=== PATIENT | female | born 1975 | race Two or more races ===

== ENCOUNTER 2016-10-11 23:09 | Emergency (ER) | payer OTHER ==
[2016-10-11] MEDS ORDERED: ONDANSETRON 4 MG/2 ML VIAL IVPUSH ONE (23:22)
[2016-10-11] MEDS ORDERED: HYDROmorphone HCL CARPU-JECT 1 MG/1 ML DISP.SYRIN IVPB ONE (23:24)
[2016-10-11 23:28] VITALS: BP 164/85; PULSE 79; TEMP 97.1; BMI 20.3
[2016-10-11] MEDS ORDERED: HYDROmorphone HCL CARPU-JECT 1 MG/1 ML DISP.SYRIN ONE (23:40)
[2016-10-11] MEDS ORDERED: ONDANSETRON 4 MG/2 ML VIAL ONE (23:40)
[2016-10-11 23:45] LABS: BASOPHIL 0.9 % (0-2.0); EOSINOPHIL 1.7 % (0-4.5); MCH 27.9 pg (25.7-33.7); MEAN CELL VOLUME 87.1 fl (80-96); MEAN PLT VOLUME 9.7 fl (7.5-11.1); NEUTROPHILS 58.6 % (42.8-82.8); RDW 19.4 % (11.6-15.6); WHITE BLOOD COUNT 4.9 K/mm3 (4.0-10.0)
[2016-10-12 00:02] LABS: URINE APPEARANCE CLEAR; URINE BILIRUBIN NEGATIVE (NEGATIVE); URINE COLOR LTYELLOW; URINE GLUCOSE (UA) 2+ (NEGATIVE); URINE KETONE NEGATIVE (NEGATIVE); URINE LEUK ESTERASE NEGATIVE (NEGATIVE); URINE NITRITE NEGATIVE (NEGATIVE); URINE UROBILINOGEN NEGATIVE E.U./dl (0.2-1.0)
[2016-10-12 00:06] LABS: ALBUMIN 3.3 g/dl (3.4-5.0); BILIRUBIN,TOTAL 1.1 mg/dL (0.2-1.0); COCKROFT - GAULT 9.01; CREATININE 6.9 mg/dL (0.55-1.02); TOT PROT 6.5 g/dl (6.4-8.2)
--- NOTE | 2016-10-12 00:13 | PDOC ---
History of Present Illness - General Chief Complaint: Pain, Acute Stated Complaint: ABD PAIN Time Seen by Provider: 10/11/16 23:13 History Source: Patient, Family, Compliance Officer Used Exam Limitations: Language Barrier - History of Present Illness Travel History: No Initial Comments: 10/12/16 00:04 41yo Female patient w/ PmHx: ESRD, Lupus, HTN, Dialysis (Mon, Wed, Fri) presents to ED c/o abdominal pain that began 1 week ago, which worsened with abdominal bloating. Patient also c/o right rib pain, subjective fever, and nausea. LNMP: Currently. She denies trauma, injury, fall, fever, cough, vomiting , diarrhea, or any other complaints at this time. PCP- Dr. Berg. Timing/Duration: reports: getting worse Quality: reports: severe Abdominal Pain Onset Location: reports: RLQ Pain Radiation: reports: chest (Right Rib) Activities at Onset: reports: no specific activity Past History - Travel Traveled outside of the country in the last 30 days: No Close contact w/someone who was outside of country & ill: No - Past Medical History Allergies/Adverse Reactions: Allergies Allergy/AdvReac Type Severity Reaction Status Date / Time morphine Allergy Verified 10/11/16 23:16 Pork/Porcine Containing AdvReac Nausea Unverified 10/11/16 23:16 Products Home Medications: Ambulatory Orders Calcium Carbonate/Vitamin D3 [Calcium 500 + Vit D Caplet] 1 each PO DAILY #1 Diltiazem [Cardizem -] 90 mg PO TID 08/06/14 Prednisone [Deltasone -] 20 mg PO DAILY 06/19/15 Methocarbamol [Robaxin -] 500 mg PO Q8H PRN #21 tablet 10/12/16 Tramadol HCl 50 mg PO Q6H PRN #20 tablet MDD 4 tab 10/12/16 Anemia: Yes Asthma: No Cancer: No Cardiac Disorders: No CVA: No COPD: No CHF: No Dementia: No Diabetes: No Dialysis: Yes (M,W,F) GI Disorders: No Disorders: No HTN: Yes Hypercholesterolemia: No Liver Disease: No Seizures: No Thyroid Disease: No - Immunization History Immunization Up to Date: Yes - Psycho/Social/Smoking Cessation Hx Suicidal Ideation: No Smoking Status: No Smoking History: Never smoked Have you smoked in the past 12 months: No Number of Cigarettes Smoked Daily: 0 Information on smoking cessation initiated: No Hx Alcohol Use: No Drug/Substance Use Hx: No Substance Use Type: None Hx Substance Use Treatment: No Review of Systems - Review of Systems Able to Perform ROS?: Yes Is the patient limited Bulgarian proficient: No Constitutional: Yes: Fever (Subjective Fever). No: Chills Respiratory: No: Cough, Shortness of Breath, Stridor, Wheezing Cardiac (ROS): No: Chest Pain, Palpitations, Syncope, Chest Tightness ABD/GI: Yes: Abdominal Distended, Nausea, Abdominal cramping. No: Constipated, Diarrhea, Vomiting : No: Burning, Dysuria, Frequency, Flank Pain, Hematuria, Urgency Musculoskeletal: No: Back Pain Integumentary: No: Bruising, Rash All Other Systems: Reviewed and Negative *Physical Exam - Vital Signs Last Vital Signs Temp Pulse Resp BP Pulse Ox 97.1 F L 79 20 164/85 100 10/11/16 23:16 10/11/16 23:16 10/11/16 23:16 10/11/16 23:16 10/11/16 23:16 - Physical Exam General Appearance: Yes: Nourished, Appropriately Dressed, Apparent Distress, Moderate Distress. No: Mild Distress, Severe Distress Neck: positive: Trachea midline, Supple. negative: Stridor, Lymphadenopathy (R) , Lymphadenopathy (L) Respiratory/Chest: positive: Lungs Clear, Normal Breath Sounds. negative: Chest Tender, Respiratory Distress, Accessory Muscle Use, Labored Respiration, Rapid RR, Crackles, Rales, Rhonchi, Stridor, Wheezing Cardiovascular: positive: Regular Rhythm, Regular Rate Gastrointestinal/Abdominal: positive: Tender, Soft, Increased Bowel Sounds, Distended, Guarding, Rebound, Tenderness Musculoskeletal: positive: Normal Inspection. negative: CVA Tenderness Extremity: positive: Normal Capillary Refill, Normal Inspection, Normal Range of Motion. negative: Swelling, Calf Tenderness, Erythema, Inflammation Integumentary: positive: Normal Color, Dry, Warm Neurologic: positive: rn correctional II-XII NML intact, Fully Oriented, Alert, Normal Mood/ Affect, Normal Response, Motor Strength 5/5 ED Treatment Course - LABORATORY CBC & Chemistry Diagram: 10/11/16 23:32 10/11/16 23:32 - ADDITIONAL ORDERS Additional order review: 10/11/16 23:32 RBC 4.59 MCV 87.1 MCHC 32.0 RDW 19.4 H MPV 9.7 Neutrophils % 58.6 Lymphocytes % 30.2 D Monocytes % 8.6 Eosinophils % 1.7 D Basophils % 0.9 - RADIOLOGY Radiology Studies Ordered: Category Date Time Status ABDOMEN & PELVIS CT W/O CONTR [CT] Stat CT Scan 10/11/16 23:[address] WITHOUT CONTRAST [CT] Stat CT Scan 10/11/16 23:22 Ordered - Medications Given in the ED: ED Medications Discontinued Medications Generic Name Dose Route Start Last Admin Trade Name Freq PRN Reason Stop Dose Admin Hydromorphone HCl 1 mg 10/11/16 23:24 10/11/16 23:48 Dilaudid Injection - IVPB 10/11/16 23:25 1 mg ONCE ONE Administration Ondansetron HCl 4 mg 10/11/16 23:22 10/11/16 23:48 Zofran Injection IVPUSH 10/11/16 23:23 4 mg ONCE ONE Administration *DC/Admit/Observation/Transfer Diagnosis at time of Disposition: Costochondral pain Abdominal pain Qualifiers: Abdominal location: lower abdomen, unspecified Qualified Code(s): R10.30 - Lower abdominal pain, unspecified - Discharge Dispostion Disposition: HOME Condition at time of disposition: Improved Admit: No - Prescriptions Prescriptions: Methocarbamol [Robaxin -] 500 mg PO Q8H PRN #21 tablet PRN Reason: Rib Pain Tramadol HCl 50 mg PO Q6H PRN #20 tablet MDD 4 tab PRN Reason: Severe Pain - Referrals Referrals: Ishaan Olivas MD [Staff Physician] - - Patient Instructions Printed Discharge Instructions: DI for Costochondritis Additional Instructions: FOLLOW UP WITH DR. OLIVAS (GASTROENTEROLOGY) OR YOUR KILN FIREMAN THIS WEEK. CALL TO SCHEDULE APPOINTMENT REGARDING ABDOMINAL BLOATING. TAKE MEDICATIONS PRESCRIBED. APPLY WARM COMPRESS TO AFFECTED AREA. ROBAXIN - MUSCLE RELAXER. TRAMADOL- PAIN RELIEVER. DO NOT TAKE EXTRA TYLENOL WITH THIS MEDICATION. RETURN IF SYMPTOMS WORSEN, SUCH SEVERE VOMITING, INCREASING ABDOMINAL PAIN, OR FEVER. Print Language: TURKISH
[2016-10-12 00:18] LABS: URINE BLOOD 1+ (NEGATIVE)
[2016-10-12 00:19] LABS: URINE PROTEIN 2+ (NEGATIVE)
[2016-10-12 00:20] LABS: PLATELET COUNT 76 K/MM3 (134-434)
[2016-10-12 00:23] LABS: URINE MUCUS RARE; URINE RBC 23 /hpf (0-3)
== END 2016-10-12 02:29 | disposition home or self-care (01) ==
LOC: JER 23:09
PROC: 3E033NZ Introduction of Analgesics, Hypnotics, Sedatives into Peripheral Vein, Percutaneous Approach (ICD-10-PCS; principal; 2016-10-11)
PROC: 3E033GC Introduction of Other Therapeutic Substance into Peripheral Vein, Percutaneous Approach (ICD-10-PCS; 2016-10-11)
DX: M94.0 Chondrocostal junction syndrome [Tietze] (principal); I12.0 Hypertensive chronic kidney disease with stage 5 chronic kidney disease or end stage renal disease; N18.6 End stage renal disease; N17.8 Other acute kidney failure; Z99.2 Dependence on renal dialysis
CPT/HCPCS: 36415; 71250-TC; 74176-TC; 80053; 81003; 81015; 85025; 87086; 96374; 96375; 99281-25

== ENCOUNTER 2017-11-28 16:39 | Emergency (ER) | payer OTHER ==
[2017-11-28 16:57] VITALS: BP 160/97; PULSE 70; TEMP 98.5; BMI 20.3
--- NOTE | 2017-11-28 17:21 | PDOC ---
History of Present Illness - General Chief Complaint: Cold Symptoms Stated Complaint: FATIGUE Time Seen by Provider: 11/28/17 17:05 History Source: Patient Exam Limitations: Clinical Condition - History of Present Illness Initial Comments: 11/28/17 17:16 Patient with history of lupus presenting with complain of 3 days history of sore throat, nonproductive cough, body aches, headache and abdominal pain. Patient also report cold and hot sensation and patient reported painful to swallow. Patient also report intermittent chest tightness for a week now with cough. She'll also report diarrhea with epigastric pain for 3 days. Patient denies any other symptoms. Past History - Past Medical History Allergies/Adverse Reactions: Allergies Allergy/AdvReac Type Severity Reaction Status Date / Time morphine Allergy Verified 11/28/17 16:57 Pork/Porcine Containing AdvReac Nausea Verified 11/28/17 16:57 Products Home Medications: Ambulatory Orders Calcium Carbonate/Vitamin D3 [Calcium 500 + Vit D Caplet] 1 each PO DAILY #1 Diltiazem [Cardizem -] 90 mg PO TID 08/06/14 Azithromycin [Zithromax Tri-Billy (3 DAYS) -] 500 mg PO DAILY #3 tablet 11/28/17 Benzonatate [Tessalon Pearls -] 100 mg PO TID PRN #21 capsule 11/28/17 Ipratropium [place] 2 sprays NS BID PRN #1 spray 11/28/17 Anemia: Yes Asthma: No Cancer: No Cardiac Disorders: No CVA: No COPD: No CHF: No Dementia: No Diabetes: No Dialysis: Yes (M,W,F) GI Disorders: No Disorders: No HTN: Yes Hypercholesterolemia: No Liver Disease: No Seizures: No Thyroid Disease: No - Immunization History Immunization Up to Date: Yes - Suicide/Smoking/Psychosocial Hx Smoking Status: No Smoking History: Never smoked Have you smoked in the past 12 months: No Number of Cigarettes Smoked Daily: 0 Information on smoking cessation initiated: No Hx Alcohol Use: No Drug/Substance Use Hx: No Substance Use Type: None Hx Substance Use Treatment: No Review of Systems - Review of Systems Able to Perform ROS?: Yes Is the patient limited Cameroonian proficient: No Constitutional: Yes: Symptoms Reported, See HPI. No: Diaphoresis, Loss of Appetite, Malaise, Night Sweats, Weakness, Weight Stable, Unintentional Wgt. Loss, Unexplained wgt Loss, Other HEENTM: Yes: See HPI, Nose Congestion, Throat Pain, Difficulty Swallowing. No: Eye Pain, Blurred Vision, Tearing, Recent change in vision, Double Vision, Cataracts, Ear Pain, Ocular Prothesis, Ear Discharge, Nose Pain, Tinnitus, Nose Bleeding, Hearing Loss, Throat Swelling, Mouth Pain, Dental Problems, Mouth Swelling, Other Respiratory: Yes: Cough. No: Shortness of Breath, SOB with Exertion, Stridor, Wheezing, Productive cough, Hemoptysis Cardiac (ROS): No: Chest Pain, Edema, Irregular Heart Rate, Lightheadedness, Palpitations, Syncope, Chest Tightness, Other ABD/GI: Yes: Diarrhea. No: Abdominal Distended, Blood Streaked Bowels, Nausea, Rectal Bleeding, Vomiting Musculoskeletal: No: Back Pain, Gout, Joint Pain, Joint Swelling, Muscle Pain, Muscle Weakness, Neck Pain, Joint Stiffness, Other Psychiatric: No: Anxiety, Depression, Frequent Crying, Stressors, Sleep Pattern Change, Emotional Problems, Mood Swings, Change in Appetite, Other All Other Systems: Reviewed and Negative *Physical Exam - Vital Signs Last Vital Signs Temp Pulse Resp BP Pulse Ox 98.5 F 70 16 160/97 100 11/28/17 16:53 11/28/17 16:53 11/28/17 16:53 11/28/17 16:53 11/28/17 16:53 - Physical Exam Comments: 11/28/17 17:20 GENERAL: Well developed, well nourished. Awake and alert. No acute distress. HEENT: Normocephalic, atraumatic. PERRLA, EOMI. No conjunctival pallor. Sclera are non- icteric. Moist mucous membranes. Oropharynx is clear. NECK: Supple. Full ROM. No JVD. Carotid pulses 2+ and symmetric, without bruits. No thyromegaly. No lymphadenopathy. CARDIOVASCULAR: Regular rate and rhythm. No murmurs, rubs, or gallops. Distal pulses are 2+ and symmetric. PULMONARY: No evidence of respiratory distress. Lungs clear to auscultation bilaterally. No wheezing, rales or rhonchi. ABDOMINAL: Soft. Non-tender. Non-distended. No rebound or guarding. No organomegaly. Normoactive bowel sounds. MUSCULOSKELETAL Normal range of motion at all joints. No bony deformities or tenderness. No CVA tenderness. EXTREMITIES: No cyanosis. No clubbing. No edema. No calf tenderness. SKIN: Warm and dry. Normal capillary refill. No rashes. No jaundice. NEUROLOGICAL: Alert, awake, appropriate. Cranial nerves 2-12 intact. No deficits to light touch and temperature in face, upper extremities and lower extremities. No motor deficits in the in face, upper extremities and lower extremities. Normoreflexic in the upper and lower extremities. Normal speech. Toes are down- going bilaterally. Gait is normal without ataxia. PSYCHIATRIC: Cooperative. Good eye contact. Appropriate mood and affect. General Appearance: Yes: Nourished, Appropriately Dressed. No: Apparent Distress Medical Decision Making - Medical Decision Making 11/28/17 17:21 Patient with history of lupus presenting with complain of sore throat, cough, bodyaches, with diarrhea and abdominal pain. Symptoms likely pharyngitis with URI. Rapid strep ordered to rule out strep pharyngitis and throat culture ordered. Treat based on strep results 11/28/17 17:48 rapid strep neg. patient will be treated for pharyngitis with URI with PCP follow-up *DC/Admit/Observation/Transfer Diagnosis at time of Disposition: Pharyngitis Qualifiers: Pharyngitis/tonsillitis etiology: unspecified etiology Qualified Code(s): J02.9 - Acute pharyngitis, unspecified URI (upper respiratory infection) Qualifiers: URI type: unspecified URI Qualified Code(s): J06.9 - Acute upper respiratory infection, unspecified - Discharge Dispostion Disposition: HOME Condition at time of disposition: Stable - Prescriptions Prescriptions: Azithromycin [Zithromax Tri-Billy (3 DAYS) -] 500 mg PO DAILY #3 tablet Benzonatate [Tessalon Pearls -] 100 mg PO TID PRN #21 capsule PRN Reason: Cough Ipratropium [place] 2 sprays NS BID PRN #1 spray PRN Reason: nasal congestion - Referrals - Patient Instructions Printed Discharge Instructions: DI for Common Cold - Post Discharge Activity
[2017-11-28] MEDS ORDERED: ACETAMINOPHEN 325 MG TABLET (FP) PO ONE (17:59)
[2017-11-28] MEDS ORDERED: ACETAMINOPHEN 325 MG TABLET (FP) ONE (18:02)
== END 2017-11-28 18:02 | disposition home or self-care (01) ==
LOC: JERFT 16:39
DX: J02.9 Acute pharyngitis, unspecified (principal); J06.9 Acute upper respiratory infection, unspecified; I12.0 Hypertensive chronic kidney disease with stage 5 chronic kidney disease or end stage renal disease; N18.6 End stage renal disease; N17.8 Other acute kidney failure; Z99.2 Dependence on renal dialysis
CPT/HCPCS: 87070; 87430; 99281-25

== ENCOUNTER 2018-03-17 20:04 | Emergency (ER) | payer OTHER ==
[2018-03-17 20:18] VITALS: PULSE 74; TEMP 97.8; BMI 20.9
--- NOTE | 2018-03-17 20:36 | PDOC ---
History of Present Illness - General Chief Complaint: Pain Stated Complaint: ABD PAIN Time Seen by Provider: 03/17/18 20:06 History Source: Patient, Family (Daughter present for interview) Exam Limitations: No Limitations - History of Present Illness Initial Comments: 42 y/o female presenting to [facility] ER via ambulance from home complaining of lower abdominal pain for the past three days. History significant for Lupus and ESRD. Pain has increased in intensity over this period. Radiates through lower abdomen and into right and left lower back. Described as dull in nature and worse with sitting up. Endorses nausea without vomiting. Endorses diarrhea ( nonbloody and nonbilious) and loose stools, estimates 5 episodes per day. Also endorses dysuria and white discharge when voiding. Pt has ESRD on hemodialysis, last run Wednesday (16 Mar 2018); still makes a trace amount of urine. Pt has a history of similar pain. Was evaluated at [facility] a few weeks ago where she was kept overnight but nothing was done. She was evaluated by her quill skinner, Dr. Berg, last week but is unable to recall his recommendations. PCP: Garo Hernández Gullet Slitter: Dr. Berg Head Athletic Trainer/Strength Coach: Dr. Chavez Medical Hx: ESRD Dialysis (Wed, Wed, Wed) Lupus HTN Surgical Hx: , 13 years ago Past History - Past Medical History Allergies/Adverse Reactions: Allergies Allergy/AdvReac Type Severity Reaction Status Date / Time morphine Allergy Verified 03/18/18 01:54 Pork/Porcine Containing AdvReac Nausea Verified 03/18/18 01:54 Products Home Medications: Ambulatory Orders Calcium Carbonate/Vitamin D3 [Calcium 500 + Vit D Caplet] 1 each PO DAILY #1 Diltiazem [Cardizem -] 90 mg PO TID 08/06/14 Acetaminophen [Tylenol] 650 mg PO QID PRN #20 tablet 11/28/17 Azithromycin [Zithromax Tri-Billy (3 DAYS) -] 500 mg PO DAILY #3 tablet 11/28/17 Benzonatate [Tessalon [place] -] 100 mg PO TID PRN #21 capsule 11/28/17 Ipratropium [place] 2 sprays NS BID PRN #1 spray 11/28/17 Loperamide HCl/Simethicone [Imodium Multi-Symptom Rel Cplt] 1 each PO TID PRN # 20 tablet 11/28/17 traMADol HCL [Ultram -] 50 mg PO BID PRN #7 tablet MDD 2 tabs 03/18/18 Anemia: Yes Asthma: No Cancer: No Cardiac Disorders: No CVA: No COPD: No CHF: No Dementia: No Diabetes: No Dialysis: Yes (M,W,F) GI Disorders: No Disorders: No HTN: Yes Hypercholesterolemia: No Liver Disease: No Seizures: No Thyroid Disease: No - Immunization History Immunization Up to Date: Yes - Suicide/Smoking/Psychosocial Hx Smoking Status: No Smoking History: Never smoked Have you smoked in the past 12 months: No Number of Cigarettes Smoked Daily: 0 Information on smoking cessation initiated: No Hx Alcohol Use: No Drug/Substance Use Hx: No Substance Use Type: None Hx Substance Use Treatment: No Review of Systems - Review of Systems Able to Perform ROS?: Yes Comments:: In addition to that documented in the HPI above, the additional ROS was obtained : Constitutional: Denies fevers or chills Eyes: Denies vision changes ENMT: Denies sore throat CV: Denies chest pain Resp: Denies SOB GI: Per HPI *Physical Exam - Vital Signs Last Vital Signs Temp Pulse Resp BP Pulse Ox 97.8 F 74 19 177/76 H 100 03/17/18 20:09 03/17/18 20:09 03/17/18 20:09 03/17/18 20:09 03/17/18 20:09 - Physical Exam Comments: Constitutional: Well-developed female in no acute distress or obvious discomfort. Appearing older than stated age. Found semi-fowlers in hospital bed. Alert and oriented x4. Answered all questions appropriately and completely. Speech was non-labored, non-pressured. HEENT: Normocephalic. No obvious external signs of trauma. Hearing grossly normal. No nasal discharge. Neck is supple, trachea is midline. Cardiovascular: Regular rate and regular rhythm. S3 heart tone, no murmur, rubs , or clicks. Peripheral pulses: Radial pulses full. Respiratory: Breathing unlabored. Equal chest rise and fall. Clear to auscultation bilaterally. No stridor, no wheezing, no rhonchi. Gastrointestinal: abdomen is soft and non-distended. Subjectively tender in RLQ , LLQ, and epigastric region with grimace but no withdrawal or guarding. No pulsatile masses. No overlying skin lesions or obvious signs of trauma. Neuro: Alert and oriented. Moving all four extremities spontaneously. Skin: Warm, dry, and intact. No bruising, rashes, or other lesions. : R or L CVA tenderness. Psych: Affect: emotive. Mood: normal. ED Treatment Course - LABORATORY CBC & Chemistry Diagram: 03/17/18 20:52 03/17/18 20:52 - RADIOLOGY Radiograph Interpretation: Abdomen and Pelvis CT with Contrast: Nico Rincon MD wrote on Mar 17, 2018 at 11:43 PM: Referring Physician: BISHOP COREY Patient Name: FLORENCE MAN THIS IS A PRELIMINARY REPORT FROM IMAGING PATIENT [facility]ANCIAL SPECIAL[facility] DATE OF SERVICE: 2018-03-17 23:07:08 IMAGES: [id number] EXAM: ABDOMEN \T\ PELVIS CT WITH CONTR HISTORY: Left lower quadrant pain. History of lupus. COMPARISON: None. FINDINGS: Lung bases are clear. Heart is mildly enlarged. There is mild dilation of IVC and hepatic veins which could indicate right-sided heart failure. Small amount of perihepatic and pericholecystic fluid is noted. Liver is is mildly enlarged up to 18.3 cm. There is pericholecystic edema, but this is felt to be secondary to the more generalized process and not cholecystitis. The kidneys are severely atrophic. No hydronephrosis. Normal pancreas, spleen, adrenal glands . The stomach and abdominal small and large bowel are normal. There is no aortic aneurysm. There is mild nonspecific retroperitoneal lymphadenopathy. The pelvic small and large bowel are normal. The appendix is normal. The uterus and adnexal structures are normal. Urinary bladder is unremarkable. Small amount of pelvic ascites is noted. No discrete pelvic lymphadenopathy is identified. IMPRESSION: Suspected right heart failure with small amount of ascites. Cardiomegaly. Hepatomegaly. Renal atrophy. One or more of the following dose reduction techniques were used: automated exposure control, adjustment of the mA and/or kV according to patient size, use of iterative reconstructive technique. THIS DOCUMENT HAS BEEN ELECTRONICALLY SIGNED Adama Rincon MD 03/17/2018 23:41 EST Medical Decision Making - Medical Decision Making *Reviewed vital signs, nursing notes, and prior visit documentation (if available). 42 y/o female complaining of vague abdominal pain in setting of chronic abdominal pain, Lupus, ESRD. Afebrile. Vitals unremarkable. Physical exam as described above. Suspect IBS versus gastritis versus colitis. Low suspicion for esophageal spasm, biliary colic, cholecystitis, ascending cholangitis, choledocholithiasis, pancreatitis, UTI. Very low suspicion for ACS, splenic infarct, acute hepatitis, lower lobe pneumonia, or appendicitis. Will obtain CBC , CMP, Lipase, Mag, Phos, UA, urine culture, and EKG. Ordered zofran and tylenol for symptom relief. CT of Abdomen and Pelvis with IV Contrast revealed cardiomegaly, hepatomegaly, renal atrophy, and trace perihepatic and pericholecystic fluids. All of these have been noted on previous scans and are unlike related to acute symptoms. Study unrevealing for acute process. Laboratory studies not suggestive for acute process. 00:54 Re-examined pt, who stated her pain was unchanged. Abdomen remains unchanged and subjectively tender in RLQ, LLQ, and epigastric region. No peritoneal signs. Discussed laboratory and imaging results with pt and daughter. Further discussed importance of dialysis following the contrast load. Recommended observational admission to hospital for dialysis as pts outpatient appointment is scheduled in only a few hours. Verbally apprised pt of importance of dialysis following the contrast load. Pt declined and requested to be discharged home. 01:06 Telephone page sent for covering physician for Dr. Griggs to close loop regarding the importance of the pts dialysis. 02:[address] Griggs returned page. Pt already discharged from department. Appraised of ED course. *DC/Admit/Observation/Transfer Diagnosis at time of Disposition: Abdominal pain Qualifiers: Abdominal location: generalized Qualified Code(s): R10.84 - Generalized abdominal pain - Discharge Dispostion Disposition: HOME Condition at time of disposition: Stable Decision to Admit order: No - Prescriptions Prescriptions: traMADol HCL [Ultram -] 50 mg PO BID PRN #7 tablet MDD 2 tabs PRN Reason: Pain - Referrals Referrals: Garo Dupree [Primary Care Provider] - - Patient Instructions Printed Discharge Instructions: DI for Abdominal Pain-Adult Additional Instructions: Your lab and imaging results did not show a reason for your pain. I have sent an electronic prescription to your pharmacy for Ultram, a pain medication. Take this as directed on the package insert. Do not take more than the recommended dose. YOU NEED TO GO TO DIALYSIS TODAY March, AT YOUR SCHEDULED APPOINTMENT. Follow up with your GI Doctor, Dr. Berg, within the next 3-4 days. You will need to call to make an appointment. Take your home medications as instructed. No change was made in your medications today. Go to the nearest emergency department if your condition worsens or you feel like you need additional emergency evaluation. Print Language: MALAY - Post Discharge Activity
[2018-03-17] MEDS ORDERED: ONDANSETRON 4 MG/2 ML VIAL IVPUSH ONE (20:38)
[2018-03-17] MEDS ORDERED: ACETAMINOPHEN 500 MG TABLET (FP) PO ONE (20:43)
[2018-03-17] MEDS ORDERED: ACETAMINOPHEN 325 MG TABLET (FP) ONE (21:09)
[2018-03-17] MEDS ORDERED: ONDANSETRON 4 MG/2 ML VIAL ONE (21:09)
--- NOTE | 2018-03-17 21:28 | PDOC ---
Attending Attestation - Resident Resident Name: Tony Montoya - ED Attending Attestation I have performed the following: I have examined & evaluated the patient, The case was reviewed & discussed with the resident, I agree w/resident's findings & plan - HPI HPI: 03/17/18 21:21 42-year-old female with multiple medical problems including lupus, end-stage renal disease on dialysis Wednesday/Wednesday/Wednesday presents now with 3-4 days of intermittent abdominal pain and nonbloody diarrhea, persistent today with worsening severity so she presents for evaluation. Chills but no measured fever , nausea but no vomiting, 2-3 episodes per day of diarrhea. No recent travel, cannot recall whether she was on antibiotics, only surgical history is section. - Physicial Exam PE: 03/17/18 21:25 Elevated blood pressure, afebrile Alert, slight distress secondary to abdominal pain No obvious jaundice or pallor Abdomen is soft and nondistended, tender with guarding in the epigastric and right middle abdomen, no rebound. Palpable thrill on left arm fistula - Medical Decision Making 03/17/18 21:28 42-year-old female with end-stage renal disease on dialysis, lupus presents with 3 days of diarrhea with abdominal pain and localized peritoneal findings. Presentation could be most consistent with enteritis versus colitis versus diverticulitis, given history rule out ischemic colitis. Labs Pain control, nausea control CT of the abdomen and pelvis Will likely need admission given her exam findings, we'll need her scheduled dialysis in the morning following contrast 03/18/18 01:08 Labs within normal limits, CAT scan without acute pathology other than small ascites. Presentation not consistent with SBP, no fevers or leukocytosis. Exam improved, although pain continues. Would proceed with observation given persistent symptoms and need for dialysis, the patient is refusing and wants to go home stating she has 5:30 AM dialysis appointment anyway. Will alert the patient's data integrity specialist, Dr. Evans, to ensure dialysis follow-up in the morning. Heart Score/ECG Review #1 ECG reviewed & interpreted by me at: 22:15 General ECG Interpretation: Sinus Rhythm, Normal Rate (60), Normal Intervals ( qtc 492, qrs 492), No acute ischemic changes
[2018-03-17 21:30] LABS: BASO % 0.7 % (0-2.0); EOS % 2.3 % (0-4.5); HEMATOCRIT 39.2 % (32.4-45.2); HEMOGLOBIN 12.9 GM/dL (10.7-15.3); LYMPH % 21.3 % (8-40); MCH 29.7 pg (25.7-33.7); MEAN CELL VOLUME 89.9 fl (80-96); MEAN PLT VOLUME 10.8 fl (7.5-11.1); NEUT % 66.7 % (42.8-82.8); PLATELET COUNT 112 K/MM3 (134-434); RBC 4.36 M/mm3 (3.60-5.2); RDW 14.7 % (11.6-15.6); WHITE BLOOD COUNT 4.9 K/mm3 (4.0-10.0)
[2018-03-17 21:55] LABS: ALBUMIN 3.6 g/dl (3.4-5.0); ALK PHOS 393 U/L (45-117); ANION GAP 13 MMOL/L (8-16); BLOOD UREA NITROGEN 53 mg/dL (7-18); CALCIUM 8.4 mg/dL (8.5-10.1); CHLORIDE 97 mmol/L (98-107); CO2 27 mmol/L (21-32); CREATININE 6.1 mg/dL (0.55-1.3); GLUCOSE,RANDOM 87 mg/dL (74-106); LIPASE 218 U/L (73-393); MAGNESIUM 2.7 mg/dL (1.8-2.4); PHOSPHOROUS 6.2 mg/dL (2.5-4.9); POTASSIUM 4.3 mmol/L (3.5-5.1); SGOT/AST 33 U/L (15-37); SGPT/ALT 31 U/L (13-61); SODIUM 136 mmol/L (136-145); TOT PROT 7.7 g/dl (6.4-8.2)
[2018-03-17 22:56] LABS: HCG,QUALITATIVE URINE Negative; URINE APPEARANCE CLEAR; URINE BILIRUBIN NEGATIVE (<2.0 mg/dL); URINE COLOR YELLOW; URINE GLUCOSE (UA) 2+ (NEGATIVE); URINE KETONE NEGATIVE (NEGATIVE); URINE LEUK ESTERASE NEGATIVE (NEGATIVE); URINE NITRITE NEGATIVE (NEGATIVE); URINE PROTEIN 3+ (NEGATIVE); URINE UROBILINOGEN 4.0 E.U/dl mg/dL (0.2-1.0)
[2018-03-17 23:03] LABS: EPI CELLS FEW /HPF (FEW); URINE MUCUS RARE
[2018-03-18 01:59] VITALS: BP 142/77
--- NOTE | 2018-03-18 07:39 | EKG ---
Test Reason : Blood Pressure : / mmHG Vent. Rate : 060 BPM Atrial Rate : 060 BPM P-R Int : 158 ms QRS Dur : 084 ms QT Int : 492 ms P-R-T Axes : 089 075 083 degrees QTc Int : 492 ms NORMAL SINUS RHYTHM MINIMAL VOLTAGE CRITERIA FOR LVH, MAY BE NORMAL VARIANT NONSPECIFIC T WAVE ABNORMALITY ABNORMAL ECG Confirmed by MYA YBARRA MD ([id number]) on 03/18/2018 7:39:23 AM Referred By: Confirmed By:MYA YBARRA MD
== END 2018-03-18 01:55 | disposition home or self-care (01) ==
LOC: JER 20:04
PROC: 3E033GC Introduction of Other Therapeutic Substance into Peripheral Vein, Percutaneous Approach (ICD-10-PCS; principal; 2018-03-17)
DX: R10.84 Generalized abdominal pain (principal); I12.0 Hypertensive chronic kidney disease with stage 5 chronic kidney disease or end stage renal disease; N18.6 End stage renal disease; N17.8 Other acute kidney failure; Z99.2 Dependence on renal dialysis; D64.9 Anemia, unspecified
CPT/HCPCS: 36415; 74177-TC; 80053; 81003; 81015; 83690; 83735; 84100; 84703; 85025; 87086; 93005; 93010; 99282-25

== ENCOUNTER 2020-08-27 12:23 | Inpatient (IN) | payer OTHER ==
[2020-08-27 12:53] VITALS: BMI 21.9
[2020-08-27] MEDS ORDERED: ACETAMINOPHEN 1000 MG/100 ML VIAL (NON FORMULARY) IVPB ONE (13:39)
[2020-08-27] MEDS ORDERED: ACETAMINOPHEN 500 MG TABLET (FP) PO ONE (13:45)
[2020-08-27] MEDS ORDERED: ACETAMINOPHEN INJECTION 100 ML IVPB ONE (14:03)
[2020-08-27 14:38] LABS: BASO % 0.7 % (0-2.0); EOS % 1.9 % (0-4.5); HEMOGLOBIN 12.8 GM/dL (10.7-15.3); LYMPH % 19.8 % (8-40); MCH 29.1 pg (25.7-33.7); MCHC 33.7 g/dl (32.0-36.0); MEAN CELL VOLUME 86.4 fl (80-96); MEAN PLT VOLUME 10.9 fl (7.5-11.1); MONO % 8.9 % (3.8-10.2); NEUT % 68.7 % (42.8-82.8); PLATELET COUNT 124 K/MM3 (134-434); RBC 4.39 M/mm3 (3.60-5.2); RDW 14.9 % (11.6-15.6); WHITE BLOOD COUNT 5.3 K/mm3 (4.0-10.0)
[2020-08-27 14:41] LABS: INR 0.94 (0.83-1.09); PROTHROMBIN TIME (PATIENT) 11.6 SEC (9.7-13.0)
[2020-08-27 14:44] LABS: ACTIVATED PTT 35.7 SECONDS (25.2-36.5)
[2020-08-27 15:06] LABS: CALCIUM 9.3 mg/dL (8.5-10.1)
[2020-08-27 15:07] LABS: ALBUMIN 3.4 g/dl (3.4-5.0); BLOOD UREA NITROGEN 26.7 mg/dL (7-18); MAGNESIUM 2.5 mg/dL (1.8-2.4)
[2020-08-27 15:10] LABS: CREATININE 4.6 mg/dL (0.55-1.3)
[2020-08-27 15:12] LABS: BILIRUBIN,TOTAL 0.6 mg/dL (0.2-1); TOT PROT 7.5 g/dl (6.4-8.2)
[2020-08-27] MEDS ORDERED: ASPIRIN COATED 81 MG TABLET.EC PO SCH (19:45)
[2020-08-27] MEDS ORDERED: HEPARIN INFUSION - 25,000 UNITS/500 ML INFUS.BAG IVPB SCH (19:45)
[2020-08-27] MEDS ORDERED: ASPIRIN 81 MG CHEWABLE TABLETS ONE (20:02)
[2020-08-27] MEDS ORDERED: HEPARIN INFUSION - 25,000 UNITS/500 ML INFUS.BAG IVPB ONE (21:12)
[2020-08-27] MEDS ORDERED: ATORVASTATIN CA 80 MG TABLET (FP) PO SCH (22:00)
[2020-08-27] MEDS ORDERED: METOPROLOL TARTRATE 25 MG TABLET (FP) PO SCH (22:00)
[2020-08-27] MEDS ORDERED: HEPARIN NA (PORCINE) 5,000 UNITS/ML 1ML VIAL SQ SCH (22:00)
[2020-08-27] MEDS ORDERED: dilTIAZem HCL 30 MG TABLET ONE (22:49)
[2020-08-27] MEDS ORDERED: METOPROLOL TARTRATE 25 MG TABLET (FP) ONE (22:49)
[2020-08-27] MEDS ORDERED: ATORVASTATIN CA 80 MG TABLET (FP) ONE (22:49)
[2020-08-27] MEDS: dilTIAZem HCL 30 MG TABLET PO SCH (22:56)
[2020-08-28 05:57] LABS: HEMATOCRIT 38.6 % (32.4-45.2); HEMOGLOBIN 12.9 GM/dL (10.7-15.3); MCH 29.2 pg (25.7-33.7); MCHC 33.4 g/dl (32.0-36.0); MEAN CELL VOLUME 87.4 fl (80-96); PLATELET COUNT 114 K/MM3 (134-434); RBC 4.42 M/mm3 (3.60-5.2); RDW 14.7 % (11.6-15.6); WHITE BLOOD COUNT 4.4 K/mm3 (4.0-10.0)
[2020-08-28] MEDS ORDERED: dilTIAZem HCL 30 MG TABLET ONE (06:14)
[2020-08-28] MEDS: dilTIAZem HCL 30 MG TABLET PO SCH (06:16)
[2020-08-28 06:59] LABS: ERYTHROCYTE SEDIMENTATION RATE 16 mm/hr (0-20)
[2020-08-28 07:44] LABS: ALBUMIN 3.2 g/dl (3.4-5.0); ALK PHOS 140 U/L (45-117); ANION GAP 10 MMOL/L (8-16); BILIRUBIN,TOTAL 0.6 mg/dL (0.2-1); BLOOD UREA NITROGEN 34.7 mg/dL (7-18); CALCIUM 9.5 mg/dL (8.5-10.1); CHLORIDE 99 mmol/L (98-107); CO2 25 mmol/L (21-32); GLUCOSE,RANDOM 107 mg/dL (74-106); MAGNESIUM 2.8 mg/dL (1.8-2.4); SGOT/AST 30 U/L (15-37); SGPT/ALT 17 U/L (13-61); SODIUM 135 mmol/L (136-145); TOT PROT 7.1 g/dl (6.4-8.2)
[2020-08-28 08:42] VITALS: BP 114/76; PULSE 59; TEMP 97.9
[2020-08-28] MEDS ORDERED: CALCIUM 500MG/VIT-D 200 UNITS COMBO TABLET (FP) PO SCH (10:00)
== END 2020-08-28 08:21 | disposition left against medical advice (07) | DRG 280 ==
LOC: JER 12:23 → JERBED 18:20 → OBSVTOIN 18:34
PROVIDERS: ADMIT Internal Medicine
DX: I21.4 Non-ST elevation (NSTEMI) myocardial infarction (principal); N18.6 End stage renal disease; I12.0 Hypertensive chronic kidney disease with stage 5 chronic kidney disease or end stage renal disease; M32.9 Systemic lupus erythematosus, unspecified; Z99.2 Dependence on renal dialysis; E78.5 Hyperlipidemia, unspecified; E78.1 Pure hyperglyceridemia
CPT/HCPCS: 36415; 71046-TC-FY; 80053; 82550; 83735; 84443; 84484; 85025; 85027; 85610; 85651; 85730; 86140; 93005; 93010; 99285-25; C9803; G0378; J1644; U0003; U0005

== ENCOUNTER 2021-11-30 22:11 | Emergency (ER) | payer MEDICARE, OTHER ==
[2021-11-30 22:30] VITALS: BP 136/60; PULSE 67; RESP 17; TEMP 98.7; BMI 21.7
[2021-12-01] MEDS ORDERED: MAG HYDROX/AL HYDROX/SIMETH 30 ML UNIT-DOSE CUP PO ONE (00:48)
[2021-12-01] MEDS ORDERED: FAMOTIDINE 20 MG/50 ML IVPB 20 MG/50 ML MG IVPB ONE ×2 (00:48→01:09)
[2021-12-01] MEDS ORDERED: ACETAMINOPHEN 1000 MG/100 ML BAG IVPB ONE (00:48)
[2021-12-01] MEDS ORDERED: MAG HYDROX/AL HYDROX/SIMETH 30 ML UNIT-DOSE CUP ONE (01:09)
[2021-12-01] MEDS ORDERED: ACETAMINOPHEN INJECTION 100 ML IVPB ONE (01:10)
[2021-12-01 02:13] LABS: BASO % 0.6 % (0-2.0); EOS % 2.1 % (0-4.5); HEMATOCRIT 38.6 % (32.4-45.2); HEMOGLOBIN 12.6 GM/dL (10.7-15.3); MCHC 32.6 g/dl (32.0-36.0); MEAN CELL VOLUME 85.7 fl (80-96); MONO % 9.6 % (3.8-10.2); NEUT % 60.7 % (42.8-82.8); PLATELET COUNT 141 10^3/uL (134-434); RBC 4.51 M/mm3 (3.60-5.2); RDW 14.5 % (11.6-15.6); WHITE BLOOD COUNT 5.6 K/mm3 (4.0-10.0)
[2021-12-01 02:42] LABS: SODIUM 137 mmol/L (136-145)
[2021-12-01 02:45] LABS: ALBUMIN 3.7 g/dl (3.4-5.0); BLOOD UREA NITROGEN 67.6 mg/dL (7-18); CALCIUM 9.5 mg/dL (8.5-10.1); CO2 25 mmol/L (21-32); GLUCOSE,RANDOM 80 mg/dL (74-106); LIPASE 233 U/L (73-393)
[2021-12-01 02:48] LABS: SGOT/AST 18 U/L (15-37)
[2021-12-01 02:50] LABS: BILIRUBIN,TOTAL 0.6 mg/dL (0.2-1); TOT PROT 7.9 g/dl (6.4-8.2)
[2021-12-01 02:51] LABS: ALK PHOS 153 U/L (45-117)
[2021-12-01 03:11] LABS: ANION GAP 13 MMOL/L (8-16); CHLORIDE 100 mmol/L (98-107); CREATININE 7.8 mg/dL (0.55-1.3); SGPT/ALT 13 U/L (13-61)
== END 2021-12-01 04:42 | disposition home or self-care (01) ==
LOC: JER 22:11
PROC: 3E0333Z Introduction of Anti-inflammatory into Peripheral Vein, Percutaneous Approach (ICD-10-PCS; principal; 2021-11-30)
PROC: 3E033GC Introduction of Other Therapeutic Substance into Peripheral Vein, Percutaneous Approach (ICD-10-PCS; 2021-11-30)
DX: R10.13 Epigastric pain (principal); R19.7 Diarrhea, unspecified
CPT/HCPCS: 36415; 71046-TC-FY; 80053; 83690; 84484; 84702; 84703; 85025; 87086; 93005; 93010; 99285-25

== ENCOUNTER 2022-05-25 14:41 | Observation (INO) | payer OTHER ==
[2022-05-25] MEDS ORDERED: MAG HYDROX/AL HYDROX/SIMETH 30 ML UNIT-DOSE CUP PO ONE (15:21)
[2022-05-25] MEDS ORDERED: ACETAMINOPHEN 500 MG TABLET (FP) PO ONE (15:21)
[2022-05-25] MEDS ORDERED: FAMOTIDINE 20 MG/50 ML IVPB 20 MG/50 ML MG IVPB ONE ×2 (15:21→16:05)
[2022-05-25 15:48] LABS: BASO % 0.8 % (0-2.0); EOS % 1.9 % (0-4.5); HEMATOCRIT 36.7 % (32.4-45.2); LYMPH % 30.4 % (8-40); MCH 28.4 pg (25.7-33.7); MCHC 32.8 g/dl (32.0-36.0); MEAN CELL VOLUME 86.7 fl (80-96); MEAN PLT VOLUME 9.6 fl (7.5-11.1); MONO % 11.3 % (3.8-10.2); NEUT % 55.6 % (42.8-82.8); PLATELET COUNT 139 10^3/uL (134-434); RBC 4.24 M/mm3 (3.60-5.2); RDW 14.5 % (11.6-15.6); WHITE BLOOD COUNT 5.1 K/mm3 (4.0-10.0)
[2022-05-25 15:57] LABS: INR 0.97 (0.83-1.09); PROTHROMBIN TIME (PATIENT) 11.2 SEC (9.7-13.0)
[2022-05-25 16:00] LABS: ACTIVATED PTT 32.2 SECONDS (25.2-36.5)
[2022-05-25] MEDS ORDERED: ACETAMINOPHEN 500 MG TABLET (FP) ONE (16:03)
[2022-05-25 16:07] LABS: CHLORIDE 98 mmol/L (98-107); SODIUM 133 mmol/L (136-145)
[2022-05-25 16:09] LABS: CALCIUM 9.5 mg/dL (8.5-10.1)
[2022-05-25 16:10] LABS: ALBUMIN 3.1 g/dl (3.4-5.0); ANION GAP 9 MMOL/L (8-16); BLOOD UREA NITROGEN 72.2 mg/dL (7-18); CO2 27 mmol/L (21-32); GLUCOSE,RANDOM 77 mg/dL (74-106); LIPASE 131 U/L (73-393); MAGNESIUM 2.8 mg/dL (1.8-2.4)
[2022-05-25 16:13] LABS: SGOT/AST 11 U/L (15-37)
[2022-05-25 16:14] LABS: BILIRUBIN,TOTAL 0.4 mg/dL (0.2-1); SGPT/ALT 11 U/L (13-61); TOT PROT 6.7 g/dl (6.4-8.2)
[2022-05-25 16:15] LABS: ALK PHOS 82 U/L (45-117)
[2022-05-25] MEDS ORDERED: SODIUM ZIRCONIUM CYCLOSILICATE (LOKELMA) 5 GM PACKET PO ONE (16:39)
[2022-05-25] MEDS ORDERED: SODIUM ZIRCONIUM CYCLOSILICATE (LOKELMA) 5 GM PACKET ONE (16:55)
[2022-05-25 17:44] LABS: PHOSPHOROUS 8.4 mg/dL (2.5-4.9)
[2022-05-25] MEDS ORDERED: PANTOPRAZOLE SODIUM 40 MG VIAL ONE (18:22)
[2022-05-25] MEDS: PANTOPRAZOLE 40 MG TABLET PO SCH (18:48)
[2022-05-26 01:09] VITALS: BMI 21.3
[2022-05-26] MEDS: dilTIAZem HCL 30 MG TABLET PO SCH ×4 (01:23→22:28)
[2022-05-26] MEDS: HEPARIN NA (PORCINE) 5,000 UNITS/ML 1ML VIAL SQ SCH ×3 (01:23→22:31)
[2022-05-26] MEDS: PANTOPRAZOLE 40 MG TABLET PO SCH (09:12)
[2022-05-26] MEDS ORDERED: EPOETIN ALFA-EPBX 4,000 UNIT/ML VIAL SQ ONE (12:10)
[2022-05-26] MEDS ORDERED: SODIUM CHLORIDE 250 ML IV PRN (12:10)
[2022-05-27] MEDS: dilTIAZem HCL 30 MG TABLET PO SCH ×3 (06:07→21:37)
[2022-05-27 08:44] LABS: HEMATOCRIT 39.8 % (32.4-45.2); MCH 28.4 pg (25.7-33.7); MCHC 32.7 g/dl (32.0-36.0); MEAN CELL VOLUME 86.8 fl (80-96); MEAN PLT VOLUME 9.7 fl (7.5-11.1); PLATELET COUNT 154 10^3/uL (134-434); RBC 4.59 M/mm3 (3.60-5.2); RDW 14.4 % (11.6-15.6); WHITE BLOOD COUNT 4.7 K/mm3 (4.0-10.0)
[2022-05-27 09:23] LABS: CREATININE 6.8 mg/dL (0.55-1.3)
[2022-05-27 10:15] LABS: BLOOD UREA NITROGEN 35.8 mg/dL (7-18)
[2022-05-27] MEDS: PANTOPRAZOLE 40 MG TABLET PO SCH (10:16)
[2022-05-27] MEDS: HEPARIN NA (PORCINE) 5,000 UNITS/ML 1ML VIAL SQ SCH ×2 (10:16→21:38)
[2022-05-28] MEDS: dilTIAZem HCL 30 MG TABLET PO SCH ×2 (05:43→14:05)
[2022-05-28] MEDS: HEPARIN NA (PORCINE) 5,000 UNITS/ML 1ML VIAL SQ SCH (09:26)
[2022-05-28] MEDS: PANTOPRAZOLE 40 MG TABLET PO SCH (09:26)
[2022-05-28] MEDS ORDERED: EPOETIN ALFA-EPBX 4,000 UNIT/ML VIAL SQ ONE (09:50)
[2022-05-28] MEDS ORDERED: SODIUM CHLORIDE 250 ML IV PRN (09:50)
[2022-05-28] MEDS ORDERED: CALCIUM 500MG/VIT-D 200 UNITS COMBO TABLET (FP) PO SCH (10:00)
[2022-05-28 10:49] VITALS: RESP 18
[2022-05-28 17:21] LABS: GLIADIN ANTIBODY IGA 4 units (0-19); GLIADIN ANTIBODY IGG 4 units (0-19); TRANSGLUTAMINASE IGG < 2 U/mL (0-5)
[2022-05-28 17:34] VITALS: BP 120/65; PULSE 67; TEMP 98
== END 2022-05-28 18:35 | disposition home or self-care (01) ==
LOC: JER 14:41 → JERBED 17:09 → J4W 05-26 01:01
PROVIDERS: ADMIT Internal Medicine; ATTEND Internal Medicine
PROC: 3E033GC Introduction of Other Therapeutic Substance into Peripheral Vein, Percutaneous Approach (ICD-10-PCS; principal; 2022-05-25)
DX: I12.0 Hypertensive chronic kidney disease with stage 5 chronic kidney disease or end stage renal disease (principal); R10.13 Epigastric pain; E78.00 Pure hypercholesterolemia, unspecified; G89.29 Other chronic pain; M32.9 Systemic lupus erythematosus, unspecified; Z99.2 Dependence on renal dialysis; Z88.6 Allergy status to analgesic agent; Z91.018 Allergy to other foods
CPT/HCPCS: 0241U-QW; 36415; 71046-TC-FY; 71275-TC; 74174-TC; 80048; 80053; 82150; 82784; 83516; 83615; 83690; 83735; 84100; 84155; 84165; 84484; 85025; 85027; 85045; 85610; 85730; 86038; 86140; 86225; 86334; 86803; 87340; 93005; 93010; 93306-TC; 96365; 99285-25; G0378

== ENCOUNTER 2022-09-15 10:36 | Inpatient (IN) | payer OTHER ==
[2022-09-15 10:57] VITALS: BMI 21.4
[2022-09-15] MEDS ORDERED: SODIUM CHLORIDE 0.9% 500 ML INFUS.BAG IV ONE (11:17)
[2022-09-15 11:49] LABS: BASO % 0.9 % (0-2.0); EOS % 2.3 % (0-4.5); HEMATOCRIT 17.1 % (32.4-45.2); LYMPH % 25.8 % (8-40); MCH 28.1 pg (25.7-33.7); MCHC 33.5 g/dl (32.0-36.0); MEAN CELL VOLUME 83.7 fl (80-96); MEAN PLT VOLUME 9.5 fl (7.5-11.1); MONO % 8.9 % (3.8-10.2); NEUT % 62.1 % (42.8-82.8); PLATELET COUNT 175 10^3/uL (134-434); RBC 2.04 M/mm3 (3.60-5.2); RDW 15.4 % (11.6-15.6); WHITE BLOOD COUNT 2.5 K/mm3 (4.0-10.0)
[2022-09-15 11:55] LABS: INR 0.96 (0.83-1.09); PROTHROMBIN TIME (PATIENT) 11.1 SEC (9.7-13.0)
[2022-09-15 11:56] LABS: HEMOGLOBIN 5.7 GM/dL (10.7-15.3)
[2022-09-15 11:57] LABS: ACTIVATED PTT 29.4 SECONDS (25.2-36.5)
[2022-09-15 12:05] LABS: POTASSIUM 3.8 mmol/L (3.5-5.1)
[2022-09-15 12:09] LABS: CALCIUM 9.1 mg/dL (8.5-10.1)
[2022-09-15 12:10] LABS: ALBUMIN 2.8 g/dl (3.4-5.0); BLOOD UREA NITROGEN 18.7 mg/dL (7-18); MAGNESIUM 2.1 mg/dL (1.8-2.4)
[2022-09-15 12:13] LABS: CREATININE 3.2 mg/dL (0.55-1.3)
[2022-09-15 12:14] LABS: BILIRUBIN,TOTAL 0.4 mg/dL (0.2-1)
[2022-09-15 12:15] LABS: URINE APPEARANCE TURBID; URINE COLOR RED; URINE GLUCOSE (UA) TRACE (NEGATIVE)
[2022-09-15 12:16] LABS: URINE BILIRUBIN NEGATIVE (NEGATIVE); URINE PROTEIN 4+ (NEGATIVE); URINE UROBILINOGEN 0.2 mg/dL (0.2-1.0)
[2022-09-15] MEDS ORDERED: medroxyPROGESTERone ACET 5 MG TABLET PO ONE (16:30)
[2022-09-15 17:28] LABS: RETICULOCYTES 2.21 % (0.5-1.5)
[2022-09-15 21:31] LABS: BASO % 1.2 % (0-2.0); EOS % 2.1 % (0-4.5); HEMOGLOBIN 7.9 GM/dL (10.7-15.3); LYMPH % 25.1 % (8-40); MCH 28.1 pg (25.7-33.7); MCHC 33.7 g/dl (32.0-36.0); MEAN CELL VOLUME 83.3 fl (80-96); MEAN PLT VOLUME 8.7 fl (7.5-11.1); NEUT % 60.6 % (42.8-82.8); PLATELET COUNT 160 10^3/uL (134-434); RDW 14.6 % (11.6-15.6); WHITE BLOOD COUNT 3.4 K/mm3 (4.0-10.0)
[2022-09-15 21:32] LABS: HEMATOCRIT 23.3 % (32.4-45.2)
[2022-09-16 06:55] LABS: EOS % 2.5 % (0-4.5); HEMATOCRIT 21.4 % (32.4-45.2); HEMOGLOBIN 7.7 GM/dL (10.7-15.3); LYMPH % 32.1 % (8-40); MCH 29.3 pg (25.7-33.7); MCHC 35.8 g/dl (32.0-36.0); MEAN CELL VOLUME 81.8 fl (80-96); MEAN PLT VOLUME 9.4 fl (7.5-11.1); MONO % 10.5 % (3.8-10.2); NEUT % 53.9 % (42.8-82.8); PLATELET COUNT 160 10^3/uL (134-434); RBC 2.62 M/mm3 (3.60-5.2); RDW 14.9 % (11.6-15.6); WHITE BLOOD COUNT 3.1 K/mm3 (4.0-10.0)
[2022-09-16 07:08] LABS: POTASSIUM 4.8 mmol/L (3.5-5.1)
[2022-09-16 07:14] LABS: CALCIUM 8.3 mg/dL (8.5-10.1)
[2022-09-16 07:15] LABS: ALBUMIN 2.4 g/dl (3.4-5.0); BLOOD UREA NITROGEN 41.1 mg/dL (7-18); MAGNESIUM 2.1 mg/dL (1.8-2.4)
[2022-09-16 07:17] LABS: BILIRUBIN,TOTAL 0.8 mg/dL (0.2-1); CREATININE 5.6 mg/dL (0.55-1.3)
[2022-09-16] MEDS: CALCIUM CARBONATE 650 MG TABLET PO SCH ×3 (09:11→17:52)
[2022-09-16] MEDS: medroxyPROGESTERone ACET 5 MG TABLET PO SCH (14:47)
[2022-09-16] MEDS ORDERED: POLYETHYLENE GLYCOL (HEALTHYLAX) 3350 17 GM PACKET PO PRN (14:55)
[2022-09-16 17:11] LABS: HEMATOCRIT 23.8 % (32.4-45.2); HEMOGLOBIN 7.8 GM/dL (10.7-15.3); MCH 27.8 pg (25.7-33.7); MCHC 32.9 g/dl (32.0-36.0); MEAN CELL VOLUME 84.5 fl (80-96); MEAN PLT VOLUME 8.8 fl (7.5-11.1); PLATELET COUNT 207 10^3/uL (134-434); RBC 2.81 M/mm3 (3.60-5.2); RDW 15.2 % (11.6-15.6); WHITE BLOOD COUNT 3.9 K/mm3 (4.0-10.0)
[2022-09-16] MEDS ORDERED: ACETAMINOPHEN 1000 MG/100 ML BAG IVPB PRN (19:57)
[2022-09-16] MEDS ORDERED: POLYETHYLENE GLYCOL (HEALTHYLAX) 3350 17 GM PACKET PO SCH (22:00)
[2022-09-17 01:18] LABS: HEMATOCRIT 16.2 % (32.4-45.2); MCH 28.3 pg (25.7-33.7); MCHC 33.8 g/dl (32.0-36.0); MEAN CELL VOLUME 83.8 fl (80-96); MEAN PLT VOLUME 8.7 fl (7.5-11.1); PLATELET COUNT 151 10^3/uL (134-434); RBC 1.93 M/mm3 (3.60-5.2); RDW 15.4 % (11.6-15.6); WHITE BLOOD COUNT 3.4 K/mm3 (4.0-10.0)
[2022-09-17 01:24] LABS: HEMOGLOBIN 5.5 GM/dL (10.7-15.3)
[2022-09-17] MEDS ORDERED: SODIUM CHLORIDE 250 ML IV PRN (07:00)
[2022-09-17] MEDS ORDERED: IRON SUCROSE INJECTION 100 MG in SODIUM CHLORIDE 95 ML IVPB ONE (08:30)
[2022-09-17] MEDS ORDERED: EPOETIN ALFA-EPBX 3,000 UNIT/ML VIAL SQ ONE (08:30)
[2022-09-17] MEDS ORDERED: DESMOPRESSIN ACETATE 4 MCG/ML AMP IVPB ONE (10:28)
[2022-09-17] MEDS: CALCIUM CARBONATE 650 MG TABLET PO SCH ×2 (10:45→12:56)
[2022-09-17] MEDS ORDERED: DESMOPRESSIN ACETATE IVPB ONE (11:35)
[2022-09-17] MEDS ORDERED: SODIUM CHLORIDE IVPB ONE (11:35)
[2022-09-17] MEDS: medroxyPROGESTERone ACET 5 MG TABLET PO SCH (13:25)
[2022-09-17] MEDS ORDERED: CALCIUM CARBONATE 650 MG TABLET PO PRN (13:35)
[2022-09-17 16:11] LABS: BASO % 0.6 % (0-2.0); EOS % 1.3 % (0-4.5); HEMATOCRIT 22.9 % (32.4-45.2); LYMPH % 16.6 % (8-40); MCH 28.5 pg (25.7-33.7); MCHC 34.8 g/dl (32.0-36.0); MEAN CELL VOLUME 81.8 fl (80-96); MEAN PLT VOLUME 8.6 fl (7.5-11.1); MONO % 7.7 % (3.8-10.2); NEUT % 73.8 % (42.8-82.8); PLATELET COUNT 147 10^3/uL (134-434); RDW 15.3 % (11.6-15.6); WHITE BLOOD COUNT 3.8 K/mm3 (4.0-10.0)
[2022-09-17 16:30] LABS: POTASSIUM 3.5 mmol/L (3.5-5.1)
[2022-09-17 16:32] LABS: CALCIUM 7.9 mg/dL (8.5-10.1)
[2022-09-17 16:36] LABS: CREATININE 2.7 mg/dL (0.55-1.3)
[2022-09-17 16:48] LABS: BLOOD UREA NITROGEN 11.9 mg/dL (7-18)
[2022-09-18] MEDS: medroxyPROGESTERone ACET 5 MG TABLET PO SCH (10:18)
[2022-09-18 12:32] LABS: INR 0.98 (0.83-1.09); PROTHROMBIN TIME (PATIENT) 11.4 SEC (9.7-13.0)
[2022-09-18] MEDS ORDERED: ACETAMINOPHEN 500 MG TABLET (FP) PO ONE (20:43)
[2022-09-19] MEDS ORDERED: SODIUM CHLORIDE 250 ML IV PRN (07:07)
[2022-09-19] MEDS ORDERED: EPOETIN ALFA-EPBX 4,000 UNIT/ML VIAL SQ ONE (08:00)
[2022-09-19 08:57] LABS: BASO % 0.7 % (0-2.0); EOS % 2.3 % (0-4.5); HEMATOCRIT 20.3 % (32.4-45.2); LYMPH % 20.4 % (8-40); MCH 28.3 pg (25.7-33.7); MCHC 33.5 g/dl (32.0-36.0); MEAN CELL VOLUME 84.4 fl (80-96); NEUT % 69.6 % (42.8-82.8); PLATELET COUNT 140 10^3/uL (134-434); RDW 15.4 % (11.6-15.6); WHITE BLOOD COUNT 3.2 K/mm3 (4.0-10.0)
[2022-09-19 09:09] LABS: HEMOGLOBIN 6.8 GM/dL (10.7-15.3)
[2022-09-19 09:17] LABS: POTASSIUM 4.4 mmol/L (3.5-5.1)
[2022-09-19 09:20] LABS: CALCIUM 8.2 mg/dL (8.5-10.1)
[2022-09-19 09:33] LABS: BLOOD UREA NITROGEN 37.6 mg/dL (7-18)
[2022-09-19] MEDS: medroxyPROGESTERone ACET 5 MG TABLET PO SCH (12:27)
[2022-09-19] MEDS ORDERED: ACETAMINOPHEN 500 MG TABLET (FP) PO ONE (14:15)
[2022-09-19 15:58] LABS: HEMATOCRIT 24.1 % (32.4-45.2); HEMOGLOBIN 8.1 GM/dL (10.7-15.3); MCHC 33.6 g/dl (32.0-36.0); MEAN CELL VOLUME 83.4 fl (80-96); MEAN PLT VOLUME 8.6 fl (7.5-11.1); PLATELET COUNT 152 10^3/uL (134-434); WHITE BLOOD COUNT 3.2 K/mm3 (4.0-10.0)
[2022-09-19] MEDS ORDERED: ACETAMINOPHEN 1000 MG/100 ML BAG IVPB PRN (21:32)
[2022-09-20 10:02] LABS: HEMATOCRIT 20.2 % (32.4-45.2); MCHC 32.8 g/dl (32.0-36.0); MEAN CELL VOLUME 85.4 fl (80-96); MEAN PLT VOLUME 9.1 fl (7.5-11.1); PLATELET COUNT 167 10^3/uL (134-434); RBC 2.37 M/mm3 (3.60-5.2); RDW 15.5 % (11.6-15.6); WHITE BLOOD COUNT 4.5 K/mm3 (4.0-10.0)
[2022-09-20] MEDS: medroxyPROGESTERone ACET 5 MG TABLET PO SCH (10:02)
[2022-09-20 10:25] LABS: HEMOGLOBIN 6.6 GM/dL (10.7-15.3)
[2022-09-20 10:28] LABS: POTASSIUM 3.9 mmol/L (3.5-5.1)
[2022-09-20 10:32] LABS: ALBUMIN 2.3 g/dl (3.4-5.0); CALCIUM 8.6 mg/dL (8.5-10.1)
[2022-09-20 10:35] LABS: CREATININE 5.1 mg/dL (0.55-1.3)
[2022-09-20 10:37] LABS: BILIRUBIN,TOTAL 0.8 mg/dL (0.2-1); TOT PROT 4.7 g/dl (6.4-8.2)
[2022-09-20] MEDS ORDERED: DESMOPRESSIN ACETATE 4 MCG/ML AMP IVPB ONE ×2 (12:14→12:18)
[2022-09-21 01:47] LABS: HEMATOCRIT 20.4 % (32.4-45.2); MCH 29.2 pg (25.7-33.7); MCHC 34.2 g/dl (32.0-36.0); MEAN CELL VOLUME 85.3 fl (80-96); MEAN PLT VOLUME 9.2 fl (7.5-11.1); PLATELET COUNT 156 10^3/uL (134-434); RDW 14.6 % (11.6-15.6); WHITE BLOOD COUNT 5.1 K/mm3 (4.0-10.0)
[2022-09-21] MEDS: medroxyPROGESTERone ACET 5 MG TABLET PO SCH ×2 (09:53→09:54)
[2022-09-21] MEDS ORDERED: MIDAZOLAM HCL 2 MG/2 ML SINGLE DOSE VIAL ONE (12:36)
[2022-09-21] MEDS ORDERED: PROPOFOL 20 ML ONE (12:38)
[2022-09-21] MEDS ORDERED: ceFAZolin SODIUM 1 GM VIAL IVPB ONE (12:50)
[2022-09-21] MEDS ORDERED: SUGAMMADEX SODIUM 200 MG/2 ML VIAL ONE (12:54)
[2022-09-21] MEDS ORDERED: CALCIUM CARBONATE 650 MG TABLET PO PRN (13:33)
[2022-09-21 15:50] LABS: BASO % 0.5 % (0-2.0); EOS % 0.8 % (0-4.5); HEMATOCRIT 21.1 % (32.4-45.2); HEMOGLOBIN 7.5 GM/dL (10.7-15.3); LYMPH % 19.2 % (8-40); MCH 29.3 pg (25.7-33.7); MCHC 35.6 g/dl (32.0-36.0); MEAN CELL VOLUME 82.1 fl (80-96); MEAN PLT VOLUME 9.5 fl (7.5-11.1); MONO % 5.2 % (3.8-10.2); NEUT % 74.3 % (42.8-82.8); PLATELET COUNT 119 10^3/uL (134-434); RBC 2.56 M/mm3 (3.60-5.2); RDW 14.8 % (11.6-15.6)
[2022-09-21 16:25] LABS: POTASSIUM 5.2 mmol/L (3.5-5.1)
[2022-09-21 16:28] LABS: BLOOD UREA NITROGEN 38.8 mg/dL (7-18); MAGNESIUM 2.1 mg/dL (1.8-2.4)
[2022-09-21 16:31] LABS: PHOSPHOROUS 7.1 mg/dL (2.5-4.9)
[2022-09-21 16:32] LABS: BILIRUBIN,TOTAL 0.7 mg/dL (0.2-1); TOT PROT 3.9 g/dl (6.4-8.2)
[2022-09-21 16:41] LABS: CREATININE 7.4 mg/dL (0.55-1.3)
[2022-09-21 19:53] LABS: EPI CELLS >36 /uL (0-25.1); HYALINE CASTS 1 /uL (0-3.1); PH,URINE >= 9.0 (5.0-8.0); URINE APPEARANCE TURBID; URINE BACTERIA 44 /uL (0-1359); URINE BILIRUBIN NEGATIVE (NEGATIVE); URINE COLOR RED; URINE GLUCOSE (UA) TRACE (NEGATIVE); URINE KETONE NEGATIVE (NEGATIVE); URINE LEUK ESTERASE 1+ (NEGATIVE); URINE NITRITE NEGATIVE (NEGATIVE); URINE PROTEIN 2+ (NEGATIVE); URINE RBC 6325 /uL (0-23.9); URINE UROBILINOGEN 0.2 mg/dL (0.2-1.0); URINE WBC 50 /uL (0-25.8)
[2022-09-22 08:57] LABS: HEMATOCRIT 21.2 % (32.4-45.2); HEMOGLOBIN 7.5 GM/dL (10.7-15.3); MCH 29.7 pg (25.7-33.7); MCHC 35.3 g/dl (32.0-36.0); MEAN CELL VOLUME 84.2 fl (80-96); MEAN PLT VOLUME 9.4 fl (7.5-11.1); PLATELET COUNT 121 10^3/uL (134-434); RBC 2.52 M/mm3 (3.60-5.2); RDW 15.3 % (11.6-15.6); WHITE BLOOD COUNT 5.9 K/mm3 (4.0-10.0)
[2022-09-22] MEDS ORDERED: medroxyPROGESTERone ACET 5 MG TABLET PO SCH (10:00)
[2022-09-22] MEDS ORDERED: EPOETIN ALFA-EPBX 4,000 UNIT/ML VIAL IVPUSH ONE (10:00)
[2022-09-22] MEDS ORDERED: CEFAZOLIN 1 GM in DEXTROSE 5%-WATER - 50 ML IVPB SCH (13:45)
[2022-09-22] MEDS ORDERED: CEFAZOLIN 500 MG in DEXTROSE 5%-WATER - 50 ML IVPB SCH (14:15)
[2022-09-22] MEDS ORDERED: VANCOMYCIN/WATER FOR INJ (PEG) 1,000 MG/200 ML BAG IVPB ONE (15:30)
[2022-09-22] MEDS: POLYETHYLENE GLYCOL (HEALTHYLAX) 3350 17 GM PACKET PO PRN (16:20)
[2022-09-23] MEDS: PIPERACILLIN/TAZOB 2.25 GM 2.25 GM in DEXTROSE 5%-WATER - 50 ML IVPB SCH ×2 (05:30→07:53)
[2022-09-23 08:30] LABS: HEMATOCRIT 20.8 % (32.4-45.2); HEMOGLOBIN 7.3 GM/dL (10.7-15.3); MCH 29.9 pg (25.7-33.7); MCHC 34.9 g/dl (32.0-36.0); MEAN CELL VOLUME 85.6 fl (80-96); MEAN PLT VOLUME 8.9 fl (7.5-11.1); PLATELET COUNT 122 10^3/uL (134-434); RBC 2.43 M/mm3 (3.60-5.2); RDW 15.5 % (11.6-15.6); WHITE BLOOD COUNT 3.1 K/mm3 (4.0-10.0)
[2022-09-23] MEDS: POLYETHYLENE GLYCOL (HEALTHYLAX) 3350 17 GM PACKET PO PRN (09:35)
[2022-09-24] MEDS ORDERED: SODIUM CHLORIDE 250 ML IV PRN (08:00)
[2022-09-24] MEDS ORDERED: EPOETIN ALFA-EPBX 2,000 UNIT/ML VIAL SQ ONE (08:00)
[2022-09-24 08:39] LABS: BASO % 0.8 % (0-2.0); EOS % 3.5 % (0-4.5); HEMATOCRIT 22.5 % (32.4-45.2); HEMOGLOBIN 7.7 GM/dL (10.7-15.3); LYMPH % 26.6 % (8-40); MCH 29.3 pg (25.7-33.7); MEAN CELL VOLUME 86.2 fl (80-96); MEAN PLT VOLUME 9.1 fl (7.5-11.1); NEUT % 62.1 % (42.8-82.8); PLATELET COUNT 155 10^3/uL (134-434); RBC 2.61 M/mm3 (3.60-5.2); RDW 15.6 % (11.6-15.6); WHITE BLOOD COUNT 3.5 K/mm3 (4.0-10.0)
[2022-09-24 09:05] LABS: POTASSIUM 4.8 mmol/L (3.5-5.1)
[2022-09-24 09:07] LABS: ALBUMIN 2.3 g/dl (3.4-5.0); BLOOD UREA NITROGEN 34.2 mg/dL (7-18); CALCIUM 8.2 mg/dL (8.5-10.1)
[2022-09-24 09:10] LABS: CREATININE 7.2 mg/dL (0.55-1.3)
[2022-09-24 09:12] LABS: BILIRUBIN,TOTAL 0.5 mg/dL (0.2-1); TOT PROT 4.7 g/dl (6.4-8.2)
[2022-09-24 15:22] VITALS: BP 112/49; PULSE 86; RESP 18; TEMP 97.6
== END 2022-09-24 15:30 | disposition home or self-care (01) | DRG 744 ==
LOC: JER 10:36 → JERBED 12:27 → J4W 19:52 → J5S 09-16 12:38
PROVIDERS: ADMIT Internal Medicine
PROC: 5A1D70Z Performance of Urinary Filtration, Intermittent, Less than 6 Hours Per Day (ICD-10-PCS; 2022-09-17)
PROC: 5A1D70Z Performance of Urinary Filtration, Intermittent, Less than 6 Hours Per Day (ICD-10-PCS; 2022-09-19)
PROC: 0UDB7ZZ Extraction of Endometrium, Via Natural or Artificial Opening (ICD-10-PCS; principal; 2022-09-21 12:00)
PROC: 5A1D70Z Performance of Urinary Filtration, Intermittent, Less than 6 Hours Per Day (ICD-10-PCS; 2022-09-22)
PROC: 5A1D70Z Performance of Urinary Filtration, Intermittent, Less than 6 Hours Per Day (ICD-10-PCS; 2022-09-24)
DX: N92.1 Excessive and frequent menstruation with irregular cycle (principal); N18.6 End stage renal disease; I12.0 Hypertensive chronic kidney disease with stage 5 chronic kidney disease or end stage renal disease; D62 Acute posthemorrhagic anemia; N93.9 Abnormal uterine and vaginal bleeding, unspecified; M32.8 Other forms of systemic lupus erythematosus; I10 Essential (primary) hypertension; E78.5 Hyperlipidemia, unspecified; Z99.2 Dependence on renal dialysis; R53.83 Other fatigue; I35.1 Nonrheumatic aortic (valve) insufficiency
CPT/HCPCS: 0241U-QW; 36415; 36430; 71045-TC-FY; 76830-TC; 80048; 80053; 81003; 82728; 82962; 83540; 83550; 83735; 84100; 84132; 84466; 84484; 84703; 85025; 85027; 85045; 85610; 85730; 86803; 86850; 86900; 86901; 86922; 87040; 87086; 87340; 88305-TC; 93005; 93010; 93306-TC; 94760; 99291; J1756; J2597; P9017; P9038; P9058; Q5106

== ENCOUNTER 2023-10-02 10:03 | Observation (INO) | payer OTHER ==
[2023-10-02 10:22] VITALS: BMI 21.5
[2023-10-02 11:33] LABS: EOS % 1.5 % (0-4.5); HEMATOCRIT 21.6 % (32.4-45.2); HEMOGLOBIN 7.2 GM/dL (10.7-15.3); LYMPH % 24.9 % (8-40); MCH 27.9 pg (25.7-33.7); MCHC 33.3 g/dl (32.0-36.0); MEAN CELL VOLUME 83.9 fl (80-96); MEAN PLT VOLUME 9.4 fl (7.5-11.1); NEUT % 63.6 % (42.8-82.8); PLATELET COUNT 102 10^3/uL (134-434); RBC 2.58 M/mm3 (3.60-5.2); RDW 15.5 % (11.6-15.6); WHITE BLOOD COUNT 2.1 K/mm3 (4.0-10.0)
[2023-10-02 11:36] LABS: INR 0.96 (0.83-1.09); PROTHROMBIN TIME (PATIENT) 11.1 SEC (9.7-13.0)
[2023-10-02 11:39] LABS: POTASSIUM 3.1 mmol/L (3.5-5.1)
[2023-10-02 11:40] LABS: MAGNESIUM 1.9 mg/dL (1.8-2.4)
[2023-10-02] MEDS ORDERED: ACETAMINOPHEN INJECTION 100 ML IVPB ONE (11:40)
[2023-10-02 11:42] LABS: BLOOD UREA NITROGEN 15.5 mg/dL (7-18); CALCIUM 8.5 mg/dL (8.5-10.1)
[2023-10-02 11:44] LABS: PHOSPHOROUS 2.7 mg/dL (2.5-4.9)
[2023-10-02 11:45] LABS: CREATININE 2.8 mg/dL (0.55-1.3)
[2023-10-02 11:46] LABS: BILIRUBIN,TOTAL 0.4 mg/dL (0.2-1); TOT PROT 5.9 g/dl (6.4-8.2)
[2023-10-02] MEDS ORDERED: ACETAMINOPHEN 325 MG TABLET (FP) ONE (11:50)
[2023-10-02] MEDS: ACETAMINOPHEN 325 MG TABLET (FP) PO ONE (11:52)
[2023-10-02] MEDS: ACETAMINOPHEN 1000 MG/100 ML BAG IVPB ONE (11:53)
[2023-10-02 15:14] LABS: BASO % 0.8 % (0-2.0); EOS % 1.4 % (0-4.5); HEMATOCRIT 20.7 % (32.4-45.2); LYMPH % 25.5 % (8-40); MCH 28.1 pg (25.7-33.7); MCHC 33.7 g/dl (32.0-36.0); MEAN CELL VOLUME 83.4 fl (80-96); MEAN PLT VOLUME 9.5 fl (7.5-11.1); MONO % 15.2 % (3.8-10.2); NEUT % 57.1 % (42.8-82.8); PLATELET COUNT 110 10^3/uL (134-434); RBC 2.48 M/mm3 (3.60-5.2); RDW 15.5 % (11.6-15.6); WHITE BLOOD COUNT 2.6 K/mm3 (4.0-10.0)
[2023-10-02 21:34] LABS: HEMATOCRIT 22.3 % (32.4-45.2); HEMOGLOBIN 7.5 GM/dL (10.7-15.3); MCH 27.7 pg (25.7-33.7); MCHC 33.7 g/dl (32.0-36.0); MEAN CELL VOLUME 82.2 fl (80-96); MEAN PLT VOLUME 9.3 fl (7.5-11.1); PLATELET COUNT 98 10^3/uL (134-434); RBC 2.71 M/mm3 (3.60-5.2); RDW 15.3 % (11.6-15.6); WHITE BLOOD COUNT 2.4 K/mm3 (4.0-10.0)
[2023-10-02] MEDS: POTASSIUM CHLORIDE ORAL LIQUID 20 MEQ/15 ML PO ONE (22:01)
[2023-10-03] MEDS: VALSARTAN 40 MG TABLET PO SCH (09:12)
[2023-10-03 09:46] LABS: HEMATOCRIT 26.1 % (32.4-45.2); HEMOGLOBIN 8.8 GM/dL (10.7-15.3); MCH 27.9 pg (25.7-33.7); MCHC 33.9 g/dl (32.0-36.0); MEAN CELL VOLUME 82.3 fl (80-96); MEAN PLT VOLUME 9.4 fl (7.5-11.1); PLATELET COUNT 107 10^3/uL (134-434); RBC 3.17 M/mm3 (3.60-5.2); RDW 15.4 % (11.6-15.6); WHITE BLOOD COUNT 2.7 K/mm3 (4.0-10.0)
[2023-10-03 10:12] LABS: POTASSIUM 4.5 mmol/L (3.5-5.1)
[2023-10-03 10:15] LABS: ALBUMIN 2.7 g/dl (3.4-5.0); BLOOD UREA NITROGEN 30.9 mg/dL (7-18); MAGNESIUM 2.1 mg/dL (1.8-2.4)
[2023-10-03 10:16] LABS: CALCIUM 8.2 mg/dL (8.5-10.1)
[2023-10-03 10:18] LABS: CREATININE 5.3 mg/dL (0.55-1.3); PHOSPHOROUS 5.3 mg/dL (2.5-4.9)
[2023-10-03 10:19] LABS: TOT PROT 5.4 g/dl (6.4-8.2)
[2023-10-03 10:20] LABS: BILIRUBIN,TOTAL 0.9 mg/dL (0.2-1)
[2023-10-03] MEDS: IRON SUCROSE INJECTION 100 MG in SODIUM CHLORIDE 95 ML IVPB SCH ×2 (21:18→21:19)
[2023-10-04 09:41] LABS: BASO % 0.8 % (0-2.0); EOS % 2.8 % (0-4.5); HEMATOCRIT 26.9 % (32.4-45.2); HEMOGLOBIN 9.3 GM/dL (10.7-15.3); LYMPH % 26.7 % (8-40); MCH 28.4 pg (25.7-33.7); MCHC 34.4 g/dl (32.0-36.0); MEAN CELL VOLUME 82.6 fl (80-96); MEAN PLT VOLUME 9.7 fl (7.5-11.1); MONO % 8.9 % (3.8-10.2); NEUT % 60.8 % (42.8-82.8); PLATELET COUNT 101 10^3/uL (134-434); RBC 3.26 M/mm3 (3.60-5.2); RDW 15.4 % (11.6-15.6); WHITE BLOOD COUNT 2.8 K/mm3 (4.0-10.0)
[2023-10-04 10:15] LABS: POTASSIUM 4.8 mmol/L (3.5-5.1)
[2023-10-04 10:23] LABS: ALBUMIN 2.9 g/dl (3.4-5.0); CALCIUM 8.6 mg/dL (8.5-10.1); CREATININE 7.1 mg/dL (0.55-1.3)
[2023-10-04 10:24] LABS: BILIRUBIN,TOTAL 0.7 mg/dL (0.2-1); BLOOD UREA NITROGEN 48.1 mg/dL (7-18); TOT PROT 5.7 g/dl (6.4-8.2)
[2023-10-04] MEDS: PANTOPRAZOLE 40 MG TABLET PO SCH (10:40)
[2023-10-04 21:03] LABS: EPI CELLS 30 /uL (0-25.1); HYALINE CASTS 0 /uL (0-3.1); PH,URINE >= 9.0 (5.0-8.0); URINE APPEARANCE CLEAR; URINE BACTERIA 146 /uL (0-1359); URINE BILIRUBIN NEGATIVE (NEGATIVE); URINE COLOR YELLOW; URINE GLUCOSE (UA) TRACE (NEGATIVE); URINE KETONE NEGATIVE (NEGATIVE); URINE LEUK ESTERASE NEGATIVE (NEGATIVE); URINE NITRITE NEGATIVE (NEGATIVE); URINE PROTEIN 2+ (NEGATIVE); URINE UROBILINOGEN 0.2 mg/dL (0.2-1.0); URINE WBC 10 /uL (0-25.8)
[2023-10-04 21:53] LABS: YEAST NONE SEEN (NEGATIVE)
[2023-10-05 03:49] VITALS: RESP 18
[2023-10-05] MEDS ORDERED: SODIUM CHLORIDE 250 ML IV PRN (08:51)
[2023-10-05 09:04] LABS: EOS % 2.2 % (0-4.5); HEMATOCRIT 25.5 % (32.4-45.2); HEMOGLOBIN 8.7 GM/dL (10.7-15.3); LYMPH % 24.9 % (8-40); MCH 28.3 pg (25.7-33.7); MCHC 34.1 g/dl (32.0-36.0); MEAN CELL VOLUME 83.1 fl (80-96); MEAN PLT VOLUME 9.8 fl (7.5-11.1); NEUT % 64.9 % (42.8-82.8); PLATELET COUNT 105 10^3/uL (134-434); RBC 3.07 M/mm3 (3.60-5.2); RDW 15.4 % (11.6-15.6); WHITE BLOOD COUNT 2.9 K/mm3 (4.0-10.0)
[2023-10-05 09:29] LABS: CHLORIDE 104 mmol/L (98-107); POTASSIUM 4.5 mmol/L (3.5-5.1); SODIUM 139 mmol/L (136-145)
[2023-10-05 09:31] LABS: CALCIUM 8.6 mg/dL (8.5-10.1)
[2023-10-05 09:32] LABS: ALBUMIN 2.9 g/dl (3.4-5.0); ANION GAP 9 mmol/L (4-13); BLOOD UREA NITROGEN 60.7 mg/dL (7-18); CO2 26 mmol/L (21-32); GLUCOSE,RANDOM 126 mg/dL (74-106)
[2023-10-05 09:35] LABS: SGOT/AST 13 U/L (15-37); SGPT/ALT 12 U/L (13-61)
[2023-10-05 09:36] LABS: TOT PROT 5.7 g/dl (6.4-8.2)
[2023-10-05] MEDS: EPOETIN ALFA-EPBX 4,000 UNIT/ML VIAL SQ ONE (09:36)
[2023-10-05 09:37] LABS: ALK PHOS 123 U/L (45-117); BILIRUBIN,TOTAL 0.7 mg/dL (0.2-1)
[2023-10-05 09:40] LABS: CREATININE 9.1 mg/dL (0.55-1.3)
[2023-10-05] MEDS: IRON SUCROSE INJECTION 100 MG in SODIUM CHLORIDE 95 ML IVPB ONE (10:05)
[2023-10-05] MEDS: MAG HYDROX/AL HYDROX/SIMETH 30 ML UNIT-DOSE CUP PO SCH (12:21)
[2023-10-05] MEDS: ACETAMINOPHEN 325 MG TABLET (FP) PO PRN (14:24)
[2023-10-05] MEDS: dilTIAZem HCL 30 MG TABLET PO SCH (14:26)
[2023-10-05 14:32] VITALS: TEMP 98.9
[2023-10-05 15:31] VITALS: BP 137/58; PULSE 81
[2023-10-05] MEDS ORDERED: POLYETHYLENE GLYCOL (HEALTHYLAX) 3350 17 GM PACKET PO SCH (22:00)
== END 2023-10-05 16:50 | disposition home or self-care (01) ==
LOC: JER 10:03 → JERBED 17:08 → J6S 19:25 → INTOOBSV 20:19 → OBSVTOIN 20:19
PROVIDERS: ADMIT Internal Medicine; ATTEND Internal Medicine
PROC: 3E033GC Introduction of Other Therapeutic Substance into Peripheral Vein, Percutaneous Approach (ICD-10-PCS; principal; 2023-10-02)
PROC: 3E013GC Introduction of Other Therapeutic Substance into Subcutaneous Tissue, Percutaneous Approach (ICD-10-PCS; 2023-10-02)
DX: N93.8 Other specified abnormal uterine and vaginal bleeding (principal); D64.9 Anemia, unspecified; I12.0 Hypertensive chronic kidney disease with stage 5 chronic kidney disease or end stage renal disease; N18.6 End stage renal disease; Z99.2 Dependence on renal dialysis; M32.14 Glomerular disease in systemic lupus erythematosus; E87.6 Hypokalemia; E78.5 Hyperlipidemia, unspecified; R10.84 Generalized abdominal pain
CPT/HCPCS: 36415; 36430; 76700-TC; 76830-TC; 80053; 81003; 83735; 84100; 84702; 85025; 85027; 85610; 86704; 86803; 86850; 86900; 86901; 86922; 87340; 87517; 93005; 93010; 96365; 96372; 99285-25; G0378; J1756; P9058; Q5106

== ENCOUNTER 2024-07-04 18:08 | Emergency (ER) | payer OTHER ==
[2024-07-04 18:13] VITALS: BMI 21.4
[2024-07-04 19:27] LABS: BASO % 0.8 % (0-2.0); HEMATOCRIT 33.5 % (32.4-45.2); HEMOGLOBIN 10.7 GM/dL (10.7-15.3); LYMPH % 25.7 % (8-40); MCH 28.4 pg (25.7-33.7); MCHC 31.8 g/dl (32.0-36.0); MEAN CELL VOLUME 89.1 fl (80-96); MEAN PLT VOLUME 9.8 fl (7.5-11.1); MONO % 8.2 % (3.8-10.2); NEUT % 63.3 % (42.8-82.8); PLATELET COUNT 145 10^3/uL (134-434); RBC 3.76 M/mm3 (3.60-5.2); RDW 15.6 % (11.6-15.6); WHITE BLOOD COUNT 3.7 K/mm3 (4.0-10.0)
[2024-07-04 19:34] LABS: INR 0.98 (0.83-1.09); PROTHROMBIN TIME (PATIENT) 10.7 SEC (9.7-13.0)
[2024-07-04 19:37] LABS: ACTIVATED PTT 30.5 SECONDS (25.2-36.5)
[2024-07-04 20:16] LABS: ALBUMIN 3.6 g/dl (3.4-5.0); CALCIUM 9.3 mg/dL (8.5-10.1)
[2024-07-04 20:17] LABS: MAGNESIUM 2.5 mg/dL (1.8-2.4)
[2024-07-04 20:20] LABS: CREATININE 6.6 mg/dL (0.55-1.3)
[2024-07-04 20:21] LABS: BILIRUBIN,TOTAL 0.5 mg/dL (0.2-1); TOT PROT 7.2 g/dl (6.4-8.2)
[2024-07-04 21:02] VITALS: BP 127/68; PULSE 81; RESP 18; TEMP 98.4
== END 2024-07-04 21:01 | disposition home or self-care (01) ==
LOC: JER 18:08
DX: N93.9 Abnormal uterine and vaginal bleeding, unspecified (principal); R53.1 Weakness; R42 Dizziness and giddiness; R06.09 Other forms of dyspnea
CPT/HCPCS: 36415; 80053; 83735; 84100; 85025; 85610; 85730; 86850; 86900; 86901; 99283-25

== ENCOUNTER 2024-12-05 10:06 | Observation (INO) | payer OTHER ==
[2024-12-05 10:58] LABS: ABSOLUTE IMMATURE GRANULOCYTES 0.06 x10^3/uL (0.0-0.031); BASOPHILS # 0.01 x10^3/uL (0.01-0.08); EOSINOPHIL % 1.1 % (0.7-5.8); EOSINOPHILS # 0.04 x10^3/uL (0.04-0.36); MCHC 31.4 g/dl (32.2-35.5); MEAN CELL VOLUME 89.4 fl (79.4-94.8); MEAN PLT VOLUME 10.4 fl (9.4-12.3); MONOCYTE # 0.28 x10^3/uL (0.24-0.86); MONOCYTE % 7.7 % (4.7-12.5); RDW 15.5 % (12.2-17.1)
[2024-12-05 11:08] LABS: INR 0.99 (0.83-1.09); PROTHROMBIN TIME (PATIENT) 10.9 SEC (9.7-13.0)
[2024-12-05 11:27] LABS: CO2 33.0 mmol/L (21-32); GLUCOSE,RANDOM 117.0 mg/dL (74-106)
[2024-12-05 11:30] LABS: CREATININE 3.8 mg/dL (0.55-1.3); SGOT/AST 10.0 U/L (15-37); SGPT/ALT 9.0 U/L (13-61)
[2024-12-05 11:32] LABS: TOT PROT 6.2 g/dl (6.4-8.2)
[2024-12-05 11:33] LABS: ALK PHOS 244.0 U/L (45-117)
[2024-12-05] MEDS ORDERED: POTASSIUM CHLORIDE ORAL LIQUID 20 MEQ/15 ML ONE (11:44)
[2024-12-05] MEDS: POTASSIUM CHLORIDE ORAL LIQUID 20 MEQ/15 ML PO ONE (11:49)
[2024-12-05 14:39] LABS: ABSOLUTE IMMATURE GRANULOCYTES 0.04 x10^3/uL (0.0-0.031); BASOPHILS # 0.01 x10^3/uL (0.01-0.08); EOSINOPHIL % 1.1 % (0.7-5.8); EOSINOPHILS # 0.04 x10^3/uL (0.04-0.36); MCHC 31.1 g/dl (32.2-35.5); MEAN CELL VOLUME 90.3 fl (79.4-94.8); MEAN PLT VOLUME 11.2 fl (9.4-12.3); MONOCYTE # 0.34 x10^3/uL (0.24-0.86); MONOCYTE % 9.3 % (4.7-12.5); RDW 15.7 % (12.2-17.1)
[2024-12-05 16:19] LABS: HCV DIAGNOSTIC IN-HOUSE W/RFLX NON-REACTIVE (NONREACTIVE)
[2024-12-05] MEDS ORDERED: ACETAMINOPHEN 325 MG TABLET (FP) PO PRN (19:40)
[2024-12-05 20:06] VITALS: BMI 21.7
[2024-12-05 20:50] LABS: MCHC 31.0 g/dl (32.2-35.5); MEAN CELL VOLUME 89.1 fl (79.4-94.8); MEAN PLT VOLUME 11.0 fl (9.4-12.3); RDW 15.8 % (12.2-17.1)
[2024-12-05 21:12] LABS: CO2 29.0 mmol/L (21-32)
[2024-12-05 21:13] LABS: GLUCOSE,RANDOM 94.0 mg/dL (74-106)
[2024-12-05 21:15] LABS: SGOT/AST 12.0 U/L (15-37); SGPT/ALT 9.0 U/L (13-61)
[2024-12-05 21:16] LABS: CREATININE 5.2 mg/dL (0.55-1.3); TOT PROT 5.4 g/dl (6.4-8.2)
[2024-12-05 21:18] LABS: ALK PHOS 216.0 U/L (45-117)
[2024-12-05] MEDS: ACETAMINOPHEN 1000 MG/100 ML BAG IVPB PRN (22:03)
[2024-12-05 22:35] LABS: HIV INTERPRETATION NEGATIVE (NEGATIVE)
[2024-12-06 07:31] LABS: ABSOLUTE IMMATURE GRANULOCYTES 0.07 x10^3/uL (0.0-0.031); BASOPHILS # 0.02 x10^3/uL (0.01-0.08); EOSINOPHIL % 2.0 % (0.7-5.8); EOSINOPHILS # 0.08 x10^3/uL (0.04-0.36); MCHC 31.6 g/dl (32.2-35.5); MEAN CELL VOLUME 88.1 fl (79.4-94.8); MEAN PLT VOLUME 11.4 fl (9.4-12.3); MONOCYTE # 0.48 x10^3/uL (0.24-0.86); MONOCYTE % 11.9 % (4.7-12.5); RDW 16.7 % (12.2-17.1)
[2024-12-06] MEDS: IRON SUCROSE INJECTION 100 MG in SODIUM CHLORIDE 95 ML IVPB ONE ×2 (10:42→21:32)
[2024-12-07] MEDS ORDERED: SODIUM CHLORIDE 250 ML IV PRN (07:00)
[2024-12-07 07:35] LABS: ABSOLUTE IMMATURE GRANULOCYTES 0.04 x10^3/uL (0.0-0.031); BASOPHILS # 0.02 x10^3/uL (0.01-0.08); EOSINOPHIL % 2.9 % (0.7-5.8); EOSINOPHILS # 0.10 x10^3/uL (0.04-0.36); MCHC 31.2 g/dl (32.2-35.5); MEAN CELL VOLUME 91.2 fl (79.4-94.8); MEAN PLT VOLUME 12.0 fl (9.4-12.3); MONOCYTE # 0.28 x10^3/uL (0.24-0.86); MONOCYTE % 8.3 % (4.7-12.5); RDW 17.1 % (12.2-17.1)
[2024-12-07 08:22] LABS: ALK PHOS 215 U/L (45-117); CO2 29 mmol/L (21-32); CREATININE 8.4 mg/dL (0.55-1.3); GLUCOSE,RANDOM 72 mg/dL (74-106); SGOT/AST 13 U/L (15-37); SGPT/ALT 8 U/L (13-61); TOT PROT 5.3 g/dl (6.4-8.2)
[2024-12-07 09:30] VITALS: RESP 18
[2024-12-07] MEDS: EPOETIN ALFA-EPBX 3,000 UNIT/ML VIAL SQ ONE (09:31)
[2024-12-07 12:31] VITALS: BP 127/70; PULSE 67; TEMP 97.6
[2024-12-08 12:02] LABS: HEPATITIS B SURF AG NON-MATERN NON-REACTIVE (NONREACTIVE)
== END 2024-12-07 17:37 | disposition home or self-care (01) ==
LOC: JER 10:06 → JERBED 16:37 → UNDOADMOB 16:37 → OBSVTOIN 19:36 → INTOOBSV 19:36 → J6W TELE 19:45 → JERBED 19:45 → J6W TELE 12-06 15:38
PROVIDERS: ADMIT Internal Medicine; ATTEND Internal Medicine
DX: D50.0 Iron deficiency anemia secondary to blood loss (chronic) (principal); N93.8 Other specified abnormal uterine and vaginal bleeding; D25.9 Leiomyoma of uterus, unspecified; N88.8 Other specified noninflammatory disorders of cervix uteri; N83.202 Unspecified ovarian cyst, left side; N83.201 Unspecified ovarian cyst, right side; I12.0 Hypertensive chronic kidney disease with stage 5 chronic kidney disease or end stage renal disease; N18.6 End stage renal disease; M32.14 Glomerular disease in systemic lupus erythematosus; D63.1 Anemia in chronic kidney disease; E78.5 Hyperlipidemia, unspecified; I08.2 Rheumatic disorders of both aortic and tricuspid valves; R63.4 Abnormal weight loss; Z99.2 Dependence on renal dialysis
CPT/HCPCS: 36430; 96372; 96374; G0257; 36415; 76830-TC; 80053; 84146; 84443; 84703; 85025; 85027; 85610; 86704; 86803; 86922; 87340; 87389; 93005; 93010; 99285-25; G0378; J1756; P9038; P9058; Q5106